=== PATIENT | male | born 1965 | race Caucasian/White ===

== ENCOUNTER 2018-12-15 00:54 | Emergency (ER) | payer OTHER ==
[~2018-12-15] VITALS: Ht 165.1 cm; Wt 95.3 kg
[2018-12-15 01:46] VITALS: BP 127/83
== END 2018-12-15 02:59 | disposition home or self-care (01) ==
LOC: ER 01:06
DX: H61.22 Impacted cerumen, left ear (principal); I10 Essential (primary) hypertension; B96.81 Helicobacter pylori [H. pylori] as the cause of diseases classified elsewhere

== ENCOUNTER 2019-05-31 22:43 | Emergency (ER) | payer OTHER ==
[~2019-05-31] VITALS: Ht 172.7 cm; Wt 90.7 kg
--- NOTE | 2019-05-31 22:47 | NUR ---
CALLED PT TO BE TRIAGED, NO ANSWER
--- NOTE | 2019-05-31 23:10 | NUR ---
PT PRESENTED TO THE ER WITH A C/O LLQ ABD PAIN /INGUINAL PAIN X 2 DAYS. PT GAVE A URINE SAMPLE AND AMBULATED TO ER 6 WITH A STEADY GAIT. PT STATED THAT HE IS GOING TO [place] TOMORROW AFTERNOON AND HE WAS WORRIED ABOUT THE ABD PAIN. PT STATED THAT IT HURTS WHEN HE SITS FOR LONG PERIODS OF TIME. PT STATED THAT HE WAS WORRIED ABOUT SITTING FOR [address]ANE WITH PAIN. PT DENIES CONSTIPATION AND DENIES URINATION ISSUES. PT IS ON THE MONITOR AND CONTINUOUS PULSE OX.
[2019-05-31 23:28] LABS: APPEARANCE,URINE Clear (CLEAR); BILIRUBIN,URINE Negative (NEGATIVE); BLOOD, URINE Negative Ery/uL (NEGATIVE); COLOR,URINE Yellow (YELLOW); KETONES,URINE Negative (NEGATIVE); LEUKOCYTE ESTERASE ,URINE Small (NEGATIVE); NITRITE, URINE Negative (NEGATIVE); PROTEIN,URINE Trace mg/dl (NEGATIVE); UGLUCOSE Negative (NEGATIVE); UROBILINOGEN,URINE 0.2 EU/dL (0.2)
[2019-05-31 23:30] LABS: BASOPHILS # (AUTO) 0.1 /CMM (0.0-0.2); BASOPHILS % (AUTO) 1.3 % (0.0-2.0); EOSINOPHILS % (AUTO) 1.6 % (0.0-6.0); HEMATOCRIT 40 % (39-51); HEMOGLOBIN 13.9 g/dL (13.5-17.5); LYMPHOCYTES # (AUTO) 2.8 /CMM (0.8-4.8); LYMPHOCYTES % (AUTO) 27.9 % (20.0-44.0); MEAN CORPUSCULAR HGB CONC 35 g/dl (31.0-36.0); MEAN CORPUSCULAR VOLUME 91 fL (80-96); MONOCYTES # (AUTO) 0.7 /CMM (0.1-1.30); MONOCYTES % (AUTO) 6.9 % (2.0-12.0); NEUTROPHILS # (AUTO) 6.3 /CMM (1.8-8.9); NEUTROPHILS % (AUTO) 62.3 % (43.0-81.0); PLATELET COUNT (AUTO) 190 /CMM (150-450); RED BLOOD CELL COUNT(AUTO) 4.37 MIL/uL (4.5-6.0); WHITE BLOOD COUNT (AUTO) 10.1 K/uL (4.3-11.0)
[2019-05-31] MEDS ORDERED: IV NS 0.9% 1,000 ML BAG IV ONE (23:30)
[2019-05-31] MEDS ORDERED: MORPHINE SULFATE INJ 2 MG/ML DISP.SYRIN IV ONE (23:30)
[2019-05-31] MEDS ORDERED: ONDANSETRON HCL/PF 4 MG/2 ML VIAL IVP ONE (23:30)
[2019-05-31] MEDS ORDERED: ONDANSETRON HCL/PF 4 MG/2 ML VIAL ONE (23:39)
[2019-05-31] MEDS ORDERED: MORPHINE SULFATE INJ 4 MG/ML DISP.SYRIN ONE (23:39)
[2019-05-31 23:43] LABS: CALCIUM, SERUM 9.4 mg/dL (8.5-10.1); CREATININE 1.1 mg/dL (0.6-1.3)
[2019-05-31] MEDS ORDERED: IBUPROFEN 600 MG TABLET PO ONE (23:45)
--- NOTE | 2019-05-31 23:45 | NUR ---
PT REFUSED MORPHINE AND ZOFRAN. AWARE. NEW ORDERS GIVEN. WILL MEDICATE PT UPON HIS RETURN FROM CT.
--- NOTE | 2019-05-31 23:45 | NUR ---
PT LEFT FOR CT VIA GURNEY.
[2019-05-31 23:48] LABS: ALBUMIN 4.1 g/dL (3.4-5.0); BILIRUBIN,DIRECT 0.1 mg/dL (0.0-0.2); BILIRUBIN,TOTAL 0.5 mg/dL (0.2-1.0); TOTAL PROTEIN, SERUM 7.9 g/dL (6.4-8.2)
[2019-05-31 23:54] LABS: BACTERIA,URINE None seen /HPF (None Seen); RBC,URINE 0-2 /HPF (0-2); SQUAMOUS EPITHELIAL CELL,UR Few /HPF (None Seen)
--- NOTE | 2019-05-31 23:56 | NUR ---
PT RETURNED FROM CT.
[2019-06-01] MEDS ORDERED: IBUPROFEN 600 MG TABLET PO ONE (00:30)
--- NOTE | 2019-06-01 00:36 | NUR ---
CALLING ELEAZAR RE: P'T'S CT.
--- NOTE | 2019-06-01 00:50 | NUR ---
PT STATED THAT HIS PAIN WAS BETTER. PT APPEARS TO BE RELAXING COMFORTABLY IN BED.
--- NOTE | 2019-06-01 01:22 | NUR ---
DR LACY SPOKE TO THE PT RE: IV ANTIBIOTICS. PT REFUSED IV ANTIBIOTICS. DR LACY OFFERED PO ANTIBIOTICS AND PT AGREED.
[2019-06-01] MEDS ORDERED: CIPROFLOXACIN HCL 500 MG TABLET ONE (01:25)
[2019-06-01] MEDS ORDERED: METRONIDAZOLE 500 MG TABLET ONE (01:26)
[2019-06-01] MEDS ORDERED: CIPROFLOXACIN HCL 500 MG TABLET PO ONE (01:30)
[2019-06-01] MEDS ORDERED: METRONIDAZOLE 500 MG TABLET PO ONE (01:30)
--- NOTE | 2019-06-01 01:40 | NUR ---
PT REC'D MEDICATION ORDERED.
--- NOTE | 2019-06-01 01:40 | NUR ---
IV removed. Catheter intact and site benign. Pressure and 4x4 applied to site. No bleeding noted. DPatient discharged to home in stable condition. Written and verbal after care instructions given. Patient verbalizes understanding of instruction AND RX. PT REC'D COPY OF THE LABS AND CT FINDINGS. PT AMBULATED OUT WITH A STEADY GAIT. VSS. NAD NOTED.
[2019-06-01 01:43] VITALS: BP 150/97
== END 2019-06-01 01:40 | disposition home or self-care (01) ==
LOC: ER 22:47
DX: K57.32 Diverticulitis of large intestine without perforation or abscess without bleeding (principal); N28.89 Other specified disorders of kidney and ureter; I10 Essential (primary) hypertension
CPT/HCPCS: 36415; 71045; 74176; 80048; 80076; 81001; 83690; 85025; 93005; 99284; J7030; 81000-TC; J2270; J2405

== ENCOUNTER 2020-11-11 15:10 | Emergency (ER) | payer OTHER ==
[~2020-11-11] VITALS: Ht 167.6 cm; Wt 92.5 kg
--- NOTE | 2020-11-11 15:36 | NUR ---
The patient was brought by his daughter to the emergency department for evaluation and treatment of persistent cough and congestion x10 days; the patient tested positive for Covid last week last -started on Z-Julio by his primary care physician. The patient finished his last dose yesterday. The patient still complained of on and off fever with cough and congestion.
--- NOTE | 2020-11-11 16:27 | NUR ---
Chest x-ray done-portable
--- NOTE | 2020-11-11 16:50 | NUR ---
Patient discharged to home in stable condition. Written and verbal after care instructions given. Patient verbalizes understanding of instruction.
[2020-11-11 16:51] VITALS: BP 115/72
== END 2020-11-11 16:51 | disposition home or self-care (01) ==
LOC: ER 15:12
DX: U07.1 COVID-19 (principal); R05 Cough; I10 Essential (primary) hypertension
CPT/HCPCS: 71045-TC

== ENCOUNTER 2020-11-16 14:24 | Inpatient (IN) | payer OTHER ==
[~2020-11-16] VITALS: Ht 167.6 cm; Wt 89.1 kg
--- NOTE | 2020-11-16 16:05 | NUR ---
SOB X 1 WEEK. WORST TODAY. TESTED POSITIVE 11/08/20. PATIENT A/OX4, PLACED ON 5LPM VIA NC WITH SPO2 OF 98%. NEEDS ATTENDED.
--- NOTE | 2020-11-16 16:53 | NUR ---
magalie haq at bedside for eval.
[2020-11-16] MEDS ORDERED: ACETAMINOPHEN ES 500 MG TABLET PO ONE (17:30)
[2020-11-16] MEDS ORDERED: DEXAMETHASONE SOD PHOSPHATE 10 MG/ML VIAL IV ONE (17:30)
--- NOTE | 2020-11-16 17:47 | NUR ---
BLOOD DRAWN AND SENT TO LAB.
--- NOTE | 2020-11-16 17:48 | NUR ---
COVID SWAB SENT TO LAB.
[2020-11-16 17:49] LABS: BASOPHILS # (AUTO) 0.1 /CMM (0.0-0.2); BASOPHILS % (AUTO) 1.3 % (0.0-2.0); EOSINOPHILS % (AUTO) 0.3 % (0.0-6.0); HEMATOCRIT 41 % (39-51); HEMOGLOBIN 13.7 g/dL (13.5-17.5); LYMPHOCYTES # (AUTO) 1.2 /CMM (0.8-4.8); LYMPHOCYTES % (AUTO) 13.5 % (20.0-44.0); MEAN CORPUSCULAR HGB CONC 34 g/dl (31.0-36.0); MEAN CORPUSCULAR VOLUME 91 fL (80-96); MONOCYTES # (AUTO) 0.3 /CMM (0.1-1.30); MONOCYTES % (AUTO) 3.4 % (2.0-12.0); NEUTROPHILS # (AUTO) 7.2 /CMM (1.8-8.9); NEUTROPHILS % (AUTO) 81.5 % (43.0-81.0); PLATELET COUNT (AUTO) 239 /CMM (150-450); RED BLOOD CELL COUNT(AUTO) 4.49 MIL/uL (4.5-6.0); WHITE BLOOD COUNT (AUTO) 8.9 K/uL (4.3-11.0)
[2020-11-16] MEDS ORDERED: ACETAMINOPHEN ES 500 MG TABLET ONE (17:50)
[2020-11-16] MEDS ORDERED: DEXAMETHASONE SOD PHOSPHATE 10 MG/ML VIAL ONE (17:50)
[2020-11-16] MEDS ORDERED: CEFTRIAXONE 1GM BAG (ER ONLY) 1 GM/50 ML PIGGYBACK IV ONE (18:00)
[2020-11-16] MEDS ORDERED: AZITHROMYCIN 500 MG in IV D5W 250 ML IV ONE (18:00)
[2020-11-16 18:01] LABS: CALCIUM, SERUM 9.1 mg/dL (8.5-10.1); CHLORIDE 93 mmol/L (98-107); CREATININE 1.2 mg/dL (0.6-1.3); GLUCOSE 128 mg/dL (74-106); POTASSIUM 3.9 mmol/L (3.5-5.1); SODIUM SERUM 131 mmol/L (136-145); UREA NITROGEN, BLOOD 11 mg/dL (7-18)
[2020-11-16] MEDS ORDERED: CEFTRIAXONE 1GM BAG (ER ONLY) 50 ML IV ONE (18:15)
[2020-11-16 18:28] LABS: CARBON DIOXIDE 26 mmol/L (21-32)
[2020-11-16 18:30] LABS: ALANINE AMINOTRANSFERASE 144 U/L (12-78); ALKALINE PHOSPHATASE 133 U/L (46-116); ASPARTATE AMINOTRANSFERASE 142 U/L (15-37); BILIRUBIN,TOTAL 0.8 mg/dL (0.2-1.0); D-DIMER 0.62 mg/L(FEU (0.17-0.50)
[2020-11-16] MEDS ORDERED: IV NS 0.9% 500 ML BAG IV ONE (18:30)
[2020-11-16 18:31] LABS: B-TYPE NATRIURETIC PEPTIDE 88 PG/ML (0-125); TOTAL PROTEIN, SERUM 8.3 g/dL (6.4-8.2)
[2020-11-16 18:43] LABS: CREATINE KINASE, TOTAL 363 U/L (39-308); FERRITIN 5005 ng/mL (8-388)
[2020-11-16 18:50] LABS: C-REACTIVE PROTEIN 22.3 mg/dL (0.0-0.9)
[2020-11-16] MEDS ORDERED: ASCO500T23 PO (18:50)
[2020-11-16] MEDS ORDERED: ACET-1262 PO (18:50)
[2020-11-16] MEDS ORDERED: ERGO500014 PO (18:50)
[2020-11-16] MEDS ORDERED: ASPI-1420 PO (18:50)
[2020-11-16] MEDS ORDERED: TAMS-12 PO (18:50)
[2020-11-16] MEDS ORDERED: ENAL1TAB10 PO (18:50)
--- NOTE | 2020-11-16 18:58 | NUR ---
PATIENT PROVIDED FOOD AND WATER.
--- NOTE | 2020-11-16 19:15 | NUR ---
ASSUMED CARE. RECEIVED REPORT FROM AM SHIFT ANJEL PRESTON. PT RESTING QUIETLY, NO ACUTE DISTRESS NOTED, RESP EVEN AND UNLABORED. PT ON CARDIAC MONITORING, CONTINUOUS POX. 02@5L/NC. NO PAIN OR DISCOMFORT NOTED AT THIS TIME. PT AAOX4. SKIN WARM, NONDIAPHORETIC. CALL LIGHT WITHIN REACH. WILL CONTINUE TO MONITOR PT CLOSELY.
[2020-11-16] MEDS ORDERED: IV NS 0.9% 1,000 ML IV PRN (19:30)
[2020-11-16] MEDS ORDERED: ALBUTEROL FS 2.5 MG/3 ML VIAL.NEB NEB PRN (19:30)
[2020-11-16] MEDS ORDERED: ONDANSETRON HCL/PF 4 MG/2 ML VIAL IVP PRN (19:30)
[2020-11-16] MEDS ORDERED: ONDANSETRON 4 MG TAB.RAPDIS SL PRN (19:30)
[2020-11-16] MEDS ORDERED: ACETAMINOPHEN 325 MG TABLET PO PRN (19:30)
[2020-11-16] MEDS: APIXABAN 5 MG TABLET PO SCH (20:35)
[2020-11-16 20:38] LABS: BILIRUBIN,DIRECT 0.3 mg/dL (0.0-0.2)
[2020-11-16] MEDS: DOXYCYCLINE HYCLATE (100 MG) 100 MG TABLET PO SCH (21:45)
[2020-11-16] MEDS ORDERED: DOXYCYCLINE HYCLATE (100 MG) 100 MG TABLET ONE (21:48)
--- NOTE | 2020-11-17 01:53 | NUR ---
PT ASLEEP, NO ACUTE DISTRESS NOTED, RESP EVEN AND UNLABORED. CALL LIGHT WITHIN REACH. WILL CONTINUE TO MONITOR PT CLOSELY.
--- NOTE | 2020-11-17 05:18 | NUR ---
PT AAOX4, NO ACUTE DISTRESS NOTED, RESP EVEN AND UNLABORED. PT REMAINS ON O2@5L/NC. PT DENIES PAIN OR DISCOMFORT AT THIS TIME. NEEDS MET AND ATTENDED THROUGHOUT THE NIGHT. CALL LIGHT WITHIN REACH. WILL CONTINUE TO MONITOR PT CLOSELY.
[2020-11-17 06:11] LABS: BASOPHILS % (AUTO) 0.2 % (0.0-2.0); HEMATOCRIT 39 % (39-51); LYMPHOCYTES # (AUTO) 0.5 /CMM (0.8-4.8); LYMPHOCYTES % (AUTO) 13.5 % (20.0-44.0); MEAN CORPUSCULAR HGB CONC 34 g/dl (31.0-36.0); MEAN CORPUSCULAR VOLUME 91 fL (80-96); MONOCYTES # (AUTO) 0.1 /CMM (0.1-1.30); MONOCYTES % (AUTO) 3.5 % (2.0-12.0); NEUTROPHILS # (AUTO) 3.1 /CMM (1.8-8.9); NEUTROPHILS % (AUTO) 82.8 % (43.0-81.0); PLATELET COUNT (AUTO) 176 /CMM (150-450); RED BLOOD CELL COUNT(AUTO) 4.24 MIL/uL (4.5-6.0); WHITE BLOOD COUNT (AUTO) 3.8 K/uL (4.3-11.0)
[2020-11-17 06:32] LABS: ALBUMIN 2.7 g/dL (3.4-5.0); BILIRUBIN,TOTAL 0.5 mg/dL (0.2-1.0); CALCIUM, SERUM 9.1 mg/dL (8.5-10.1); CREATININE 1.1 mg/dL (0.6-1.3); POTASSIUM 3.9 mmol/L (3.5-5.1); TOTAL PROTEIN, SERUM 7.6 g/dL (6.4-8.2)
--- NOTE | 2020-11-17 08:00 | NUR ---
PATIENT ON O2 AT 5LPM VIA NC, WITH SPO2 OF 91-92%. PATIENT DESATS ON EXERTION. INSTRUCTED PATIENT TO REST IN BED.
[2020-11-17] MEDS ORDERED: DEXAMETHASONE SOD PHOSPHATE 4 MG/ML VIAL ONE (09:17)
[2020-11-17] MEDS ORDERED: DOXYCYCLINE HYCLATE (100 MG) 100 MG TABLET ONE ×2 (09:17→20:17)
[2020-11-17] MEDS: DEXAMETHASONE SOD PHOSPHATE 10 MG/ML VIAL IV SCH (09:41)
[2020-11-17] MEDS: CEFEPIME 1 GM in IV D5W 50 ML IV SCH ×2 (09:41→20:57)
[2020-11-17] MEDS: APIXABAN 5 MG TABLET PO SCH ×2 (09:42→17:25)
[2020-11-17] MEDS: DOXYCYCLINE HYCLATE (100 MG) 100 MG TABLET PO SCH ×2 (09:42→20:58)
--- NOTE | 2020-11-17 10:00 | NUR ---
PATIENT SEEN AND EVALUATED BY DR. TODD.
--- NOTE | 2020-11-17 13:36 | NUR ---
PATIENT'S NEEDS ATTENDED, CHANGED GOWN AND BLANKET.
--- NOTE | 2020-11-17 14:01 | NUR ---
PATIENT ASSISTED ON BEDSIDE COMMODE.
--- NOTE | 2020-11-17 14:53 | NUR ---
PATIENT'S O2 INCREASED TO 6LPM VIA NC WITH SPO2 OF 95%, NEEDS ATTENDED. PATIENT GIVEN INFORMATION AND HANDOUT REGARDING REMDESIVIR, SPOKE TO PATIENT'S DAUGHTER FOR TRANSLATION TO PATIENT.
--- NOTE | 2020-11-17 15:00 | NUR ---
PATIENT AND FAMILY STATED THEY WANT TO WAIT A LITTLE LONGER BEFORE TAKING THE REMDESIVIR, THEY ARE CONCERN ABOUT THE SIDE EFFECTS. INFORMED PHARMACY AND MD PATIENT IS REFUSING REMDESIVIR AT THIS TIME. EXPLAINED RISKS AND BENEFITS STILLR EFUSED.
[2020-11-18 05:30] LABS: ALBUMIN 2.6 g/dL (3.4-5.0); BILIRUBIN,DIRECT 0.2 mg/dL (0.0-0.2); BILIRUBIN,TOTAL 0.4 mg/dL (0.2-1.0); TOTAL PROTEIN, SERUM 7.2 g/dL (6.4-8.2)
--- NOTE | 2020-11-18 08:27 | NUR ---
report given to deuce at [facility]. pt will go to 103
[2020-11-18 09:00] VITALS: BP 116/76
--- NOTE | 2020-11-18 09:06 | NUR ---
pt transferred to room 103
--- NOTE | 2020-11-18 09:10 | NUR ---
ADMITTED PT FROM ER WITH DX OF COVID PNA.PT IS ALERT AND ORIENTED X3. DANISH SPEAKING.ON O2 AT 5 L/ MIN VIA NC. OS SAT 96%.SKIN INTACT.AMBULATES AD GENEVIEVE STEADY GAIT WITH O2 . ROOM ORIENTATION AND USE OF CALL LIGHT PROVIDED. SPOKE TO PT'S DAUGHTER,KIMBERLY WHO STATED THAT HER DAD IS STILL UNDECIDED TO RECEIVE REMDESIVIR IV AT THIS TIME AND TO GIVE HER TIME TO CONVINCE HER DAD. CALL LIGHT PLACED WITHIN REACH.
[2020-11-18] MEDS: DEXAMETHASONE SOD PHOSPHATE 10 MG/ML VIAL IV SCH (10:32)
[2020-11-18] MEDS: APIXABAN 5 MG TABLET PO SCH ×2 (10:33→16:33)
[2020-11-18] MEDS: DOXYCYCLINE HYCLATE (100 MG) 100 MG TABLET PO SCH ×2 (10:33→20:35)
--- NOTE | 2020-11-18 11:00 | NUR ---
PT REFUSED TO HAVE REMDESIVIR IV INSPITE OF EXPLAINING THE RISKS AND BENEFITS WITH HIS DAUGHTER,KIMBERLY CONVINCING HIM. KIMBERLY STATED VIA PHONE THAT SHE WILL TRY TO CONVINCE HER DAD AGAIN JUST GIVE HER TIME FOR AN HOUR.PHARMACIST AWARE.
[2020-11-18] MEDS: CEFEPIME 1 GM in IV D5W 50 ML IV SCH ×2 (11:17→20:35)
[2020-11-18 12:00] VITALS: BP 144/84
--- NOTE | 2020-11-18 13:00 | NUR ---
PT'S DAUGHTER,KIMBERLY CALLED AND STATED THAT PT WANTS TO RECEIVE REMDESIVIR IV THERAPY NOW BUT NOT THE CONVALESCENT PLASMA. PT/FAMILY REFUSED CONVALESCENT PLASMA.
[2020-11-18 13:47] LABS: CALCIUM, SERUM 9.2 mg/dL (8.5-10.1); CREATININE 0.9 mg/dL (0.6-1.3); POTASSIUM 3.9 mmol/L (3.5-5.1)
[2020-11-18] MEDS ORDERED: REMDESIVIR (CHARGED) 200 MG, *LOADING DOSE 1 EA in IV NS 0.9% 210 ML IV ONE (15:00)
[2020-11-18 16:00] VITALS: BP 132/84
--- NOTE | 2020-11-18 19:09 | NUR ---
RN NOTES PT IS ALERT AND ORIENTED X3. SWEDISH SPEAKING.ON O2 AT 5 L/ MIN VIA NC. OS SAT 96%.SKIN INTACT.AMBULATES AD GENEVIEVE STEADY GAIT WITH O2 . NO SOB NO PAIN OR DISCOMFORT VISIBLE OR REPORTED AT THIS TIME.CALL LIGHT WITHIN REACH. BED LOCKED IN POSITION. WILL ENDORSE TO ON COMING NURSE.
--- NOTE | 2020-11-18 19:45 | NUR ---
RN NOTES RECEIVED PT IN BED, ALERT AND ORIENTED X 4, VERBALLY RESPONDING. BREATHING EVEN AND UNLABORED ON O2 VIA NC AT 5L SATING AT 95 % DENIES SOB DENIES PAIN. ON TELE MONITORING SR HR 83. R AC IV FLUSHED, PATENT AND INTACT. IV SITE NORMAL, NO REDNESS NOTED. ISOLATION PRECAUTION OBSERVED. ALL SAFETY MEASURES IMPLEMENTED PER PROTOCOL. CALL LIGHT WITHIN REACH. BED LOCKED IN LOWEST POSITION. SIDE RAILS UP X 2.
[2020-11-18 20:00] VITALS: BP 138/81
[2020-11-19] VITALS: BP 125/75
[2020-11-19 04:00] VITALS: BP 120/71
--- NOTE | 2020-11-19 06:42 | NUR ---
RN NOTES PT SLEEPING, EASILY AROUSABLE BY VERBAL STIMULI. CONTINUR ON O2 VIA NC AT 5L,TOLERATING WELL. DENIES SOB. NO DISTRESS NOTED. TELE READING SB HR 58. PT ABLE TO MAKE NEEDS KNOWN, NEEDS ATTENDED. IV ON RAC PATENT AND INTAT. NO SIGNS OF INFECTION. STRICT ISOLATION PRECAUTION MAINTAINED. ALL SAFETY MEASURES IMPLEMENTED PER PROTOCOL. WILL ENDORSE TO NEXT SHIFT NURSE FOR NELIDA.
--- NOTE | 2020-11-19 07:30 | NUR ---
SUB ASSEMBLY TEAM WORKER NOTES PT IN BED, AWAKE, ALERT AND ORIENTED, NO COMPLAINT OF PAIN, RESPIRATIONS NORMAL, NO SHORTNESS OF BREATH, CALL LIGHT WITHIN REACH, NEEDS ATTENDED.
--- NOTE | 2020-11-19 07:33 | NUR ---
RADIO NEWS WRITER NOTES PT IN BED, AWAKE, ALERT AND ORIENTED, NO COMPLAINT OF PAIN AT THIS TIME, RESPIRATION RATE NORMAL, ON HIGN FLOW O2 AND NRM, CALL LIGHT WITHIN REACH, NEEDS ATTENDED. Addendum: 11/19/20 at 1026 by COLEMAN TREVINO RN PLEASE DISREGARD ABOVE NOTE, MEANT FOR ANOTHER PATIENT.
[2020-11-19 07:47] LABS: HEMATOCRIT 36 % (39-51); HEMOGLOBIN 12.3 g/dL (13.5-17.5); LYMPHOCYTES # (AUTO) 0.6 /CMM (0.8-4.8); MEAN CORPUSCULAR HGB CONC 34 g/dl (31.0-36.0); MEAN CORPUSCULAR VOLUME 91 fL (80-96); MONOCYTES # (AUTO) 0.5 /CMM (0.1-1.30); MONOCYTES % (AUTO) 5.2 % (2.0-12.0); NEUTROPHILS # (AUTO) 9.4 /CMM (1.8-8.9); NEUTROPHILS % (AUTO) 88.8 % (43.0-81.0); PLATELET COUNT (AUTO) 248 /CMM (150-450); RED BLOOD CELL COUNT(AUTO) 3.96 MIL/uL (4.5-6.0); WHITE BLOOD COUNT (AUTO) 10.5 K/uL (4.3-11.0)
[2020-11-19 08:00] VITALS: BP 137/85
[2020-11-19 08:15] LABS: ALBUMIN 2.6 g/dL (3.4-5.0); BILIRUBIN,DIRECT 0.2 mg/dL (0.0-0.2); BILIRUBIN,TOTAL 0.4 mg/dL (0.2-1.0); CALCIUM, SERUM 8.7 mg/dL (8.5-10.1); POTASSIUM 4.1 mmol/L (3.5-5.1); TOTAL PROTEIN, SERUM 6.7 g/dL (6.4-8.2)
[2020-11-19 08:52] LABS: D-DIMER 0.75 mg/L(FEU (0.17-0.50)
[2020-11-19] MEDS: DEXAMETHASONE SOD PHOSPHATE 10 MG/ML VIAL IV SCH (09:10)
[2020-11-19] MEDS: CEFEPIME 1 GM in IV D5W 50 ML IV SCH ×2 (09:10→21:20)
[2020-11-19] MEDS: DOXYCYCLINE HYCLATE (100 MG) 100 MG TABLET PO SCH ×2 (09:10→21:20)
[2020-11-19] MEDS: APIXABAN 5 MG TABLET PO SCH ×2 (09:11→16:40)
--- NOTE | 2020-11-19 11:39 | NUR ---
ARCHITECT MANAGER NOTES PT IN BED, NO COMPLAINT AT THIS TIME, NOT IN DISTRESS, ABLE TO AMBULATE TO THE BATHROOM WITH STEADY GAIT, NEEDS ATTENDED, CALL LIGHT WITHIN REACH.
[2020-11-19 12:00] VITALS: BP 148/82
[2020-11-19 12:06] LABS: C-REACTIVE PROTEIN 4.5 mg/dL (0.0-0.9)
[2020-11-19] MEDS: REMDESIVIR (CHARGED) 100 MG in IV NS 0.9% 230 ML IV SCH (14:40)
[2020-11-19 16:00] VITALS: BP 156/90
--- NOTE | 2020-11-19 18:01 | NUR ---
TEST PREPARER NOTES PT IN BED, AWAKE, ALERT AND ORIENTED, DENIES PAIN, NO SOB, ON 5L OF O2 VIA N/C, ABLE TO AMBULATE TO THE BATHROOM WITH STEADY GAIT, PM MEDS GIVEN ORDERED.
--- NOTE | 2020-11-19 19:46 | NUR ---
RN NOTES PATIENT AWAKE AND ALERT. NO SOB, ON 5L OF O2 VIA NASAL CANNULA. DENIES ANY PAIN OR DISCOMFORT. WITH RIGHT AC #20 INTACT AND PATENT. ALL NEEDS ANTICIPATED. CALL LIGHT WITHIN REACH. WILL CONTINUE TO MONITOR.
[2020-11-19 20:00] VITALS: BP 135/85
[2020-11-20] VITALS: BP 150/87
[2020-11-20 04:00] VITALS: BP 140/84
--- NOTE | 2020-11-20 06:41 | NUR ---
RN NOTES PATIENT RESTING IN BED, A/O X4. NO SOB, ON 5L OF O2 VIA NASAL CANNULA O2 SAT 96%. DENIES ANY PAIN OR DISCOMFORT. WITH RIGHT AC #20 INTACT AND PATENT. ALL NEEDS ANTICIPATED. CALL LIGHT WITHIN REACH. SAFETY PRECAUTIONS IMPLEMENTED. WILL ENDORSE TO ONCOMING SHIFT.
[2020-11-20 07:08] LABS: BASOPHILS % (AUTO) 0.1 % (0.0-2.0); EOSINOPHILS % (AUTO) 0.1 % (0.0-6.0); HEMATOCRIT 34 % (39-51); HEMOGLOBIN 11.7 g/dL (13.5-17.5); LYMPHOCYTES # (AUTO) 0.9 /CMM (0.8-4.8); LYMPHOCYTES % (AUTO) 8.7 % (20.0-44.0); MEAN CORPUSCULAR HGB CONC 35 g/dl (31.0-36.0); MEAN CORPUSCULAR VOLUME 90 fL (80-96); MONOCYTES # (AUTO) 0.5 /CMM (0.1-1.30); MONOCYTES % (AUTO) 5.3 % (2.0-12.0); NEUTROPHILS # (AUTO) 8.7 /CMM (1.8-8.9); NEUTROPHILS % (AUTO) 85.8 % (43.0-81.0); PLATELET COUNT (AUTO) 243 /CMM (150-450); RED BLOOD CELL COUNT(AUTO) 3.78 MIL/uL (4.5-6.0); WHITE BLOOD COUNT (AUTO) 10.2 K/uL (4.3-11.0)
--- NOTE | 2020-11-20 07:20 | NUR ---
GLASS PRODUCTS INSPECTOR OPENING NOTES PATIENT IS IN BED, AWAKE AND VERBALLY RESPONSIVE. ALERT AND ORIENTED X4, ABLE TO MAKE NEEDS KNOWN. BREATHING EVEN AND UNLABORED, ON 5L OXYGEN VIA NASAL CANNULA, NO RESPIRATORY DISTRESS NOTED. ON TELE MONITORING, READING OF SR, HR IN THE LOW- TO MID-60'S. IV LINE ON RAC #20 INTACT AND PATENT. SAFETY MEASURES IN PLACE: BED ON LOWEST POSITION, SIDE RAILS UP X2. CALL LIGHT WITHIN REACH. WILL CONTINUE TO MONITOR.
[2020-11-20 07:33] LABS: ALBUMIN 2.4 g/dL (3.4-5.0); BILIRUBIN,DIRECT 0.2 mg/dL (0.0-0.2); BILIRUBIN,TOTAL 0.4 mg/dL (0.2-1.0); CALCIUM, SERUM 8.5 mg/dL (8.5-10.1); CREATININE 0.9 mg/dL (0.6-1.3); POTASSIUM 4.3 mmol/L (3.5-5.1); TOTAL PROTEIN, SERUM 6.2 g/dL (6.4-8.2)
[2020-11-20 08:00] VITALS: BP 129/79
[2020-11-20] MEDS: DOXYCYCLINE HYCLATE (100 MG) 100 MG TABLET PO SCH ×2 (08:05→20:24)
[2020-11-20] MEDS: DEXAMETHASONE SOD PHOSPHATE 10 MG/ML VIAL IV SCH (08:05)
[2020-11-20] MEDS: CEFEPIME 1 GM in IV D5W 50 ML IV SCH ×2 (08:07→20:24)
[2020-11-20] MEDS: APIXABAN 5 MG TABLET PO SCH (08:07)
[2020-11-20 12:00] VITALS: BP_SYST 143; BP_SYST 148; BP_DIAS 87
[2020-11-20] MEDS: REMDESIVIR (CHARGED) 100 MG in IV NS 0.9% 230 ML IV SCH (14:40)
[2020-11-20 16:00] VITALS: BP 139/88
--- NOTE | 2020-11-20 16:27 | NUR ---
RN NOTES REMDESIVIR IV DOSE GIVEN TODAY. PATIENT NO COMPLAINT OF SOB NOR RESPIRATORY DISTRESS. ABLE TO AMBULATE TO RESTROOM.
[2020-11-20] MEDS ORDERED: APIXABAN 5 MG TABLET PO SCH (17:00)
--- NOTE | 2020-11-20 19:00 | NUR ---
SECOND RIDE FARE COLLECTOR CLOSING NOTES PATIENT IS RESTING IN BED, AWAKE AND VERBALLY RESPONSIVE. ALERT AND ORIENTED X4, ABLE TO MAKE NEEDS KNOWN. BREATHING EVEN AND UNLABORED, CONTINUES ON 5L OXYGEN VIA NC. ON TELE MONITORING, READING OF SR, HR IN THE 60'S, NO CARDIAC DISTRESS NOTED. IV LINE ON RAC #20 INTACT AND PATENT. DUE MEDS GIVEN TODAY. PATIENT ABLE TO EAT AND AMBULATE TO BATHROOM W/ NO ADVERSE CHANGES. SAFETY MEASURES MAINTAINED: BED ON LOWEST POSITION, SIDE RAILS UP X2. CALL LIGHT WITHIN REACH. WILL ENDORSE TO INTERNAL REVIEW AND AUDIT COMPLIANCE RN FOR NELIDA.
--- NOTE | 2020-11-20 19:30 | NUR ---
CASINO FLOOR WALKER NOTES PATIENT IN BED, AWAKE, ALERT AND ORIENTED X 4. BREATHING EVEN AND UNLABORED ON 5L NC. SHOWS NO SIGNS OF ACUTE RESPIRATORY DISTRESS. NO ACUTE PAIN. TELE SR. RAC 20G ITS CLEAN DRY AND INTACT. FLUSHING WELL. SHOWS NO SIGNS OF INFILTRATION, NO REDNESS. SAFETY PRECAUTIONS IN PLACE. BED IN LOWEST POSITION, LOCKED, AND CALL LIGHT KEPT WITHIN REACH. WILL CONTINUE TO MONITOR.
[2020-11-20 20:00] VITALS: BP 146/89
[2020-11-20] MEDS: ENOXAPARIN SODIUM 40 MG/0.4 ML DISP.SYRIN SQ SCH (20:24)
[2020-11-21] VITALS: BP 149/82
[2020-11-21 04:00] VITALS: BP 136/87
--- NOTE | 2020-11-21 04:53 | NUR ---
INTERNATIONAL ACCOUNTANT NOTES PATIENT REQUESTED TYLENOL FOR HEADACHE. CHANGED MIND, WASTED MEDICATION IN PROPER BIN.
[2020-11-21 06:17] LABS: ALBUMIN 2.6 g/dL (3.4-5.0); BASOPHILS % (AUTO) 0.1 % (0.0-2.0); BILIRUBIN,DIRECT 0.2 mg/dL (0.0-0.2); BILIRUBIN,TOTAL 0.5 mg/dL (0.2-1.0); CALCIUM, SERUM 8.7 mg/dL (8.5-10.1); EOSINOPHILS % (AUTO) 0.2 % (0.0-6.0); HEMATOCRIT 36 % (39-51); LYMPHOCYTES # (AUTO) 1.2 /CMM (0.8-4.8); LYMPHOCYTES % (AUTO) 12.2 % (20.0-44.0); MEAN CORPUSCULAR HGB CONC 34 g/dl (31.0-36.0); MEAN CORPUSCULAR VOLUME 91 fL (80-96); MONOCYTES # (AUTO) 0.6 /CMM (0.1-1.30); MONOCYTES % (AUTO) 5.6 % (2.0-12.0); NEUTROPHILS # (AUTO) 8.2 /CMM (1.8-8.9); NEUTROPHILS % (AUTO) 81.9 % (43.0-81.0); PLATELET COUNT (AUTO) 267 /CMM (150-450); POTASSIUM 4.8 mmol/L (3.5-5.1); RED BLOOD CELL COUNT(AUTO) 3.95 MIL/uL (4.5-6.0); TOTAL PROTEIN, SERUM 6.3 g/dL (6.4-8.2)
--- NOTE | 2020-11-21 07:09 | NUR ---
CHANNEL MARKETING PROGRAM MANAGER NOTES PATIENT IN BED, ASLEEP, ALERT AND ORIENTED X 4. BREATHING EVEN AND UNLABORED ON 5L NC. SHOWS NO SIGNS OF ACUTE RESPIRATORY DISTRESS. NO ACUTE PAIN. TELE SR. RAC 20G ITS CLEAN DRY AND INTACT. FLUSHING WELL. SHOWS NO SIGNS OF INFILTRATION, NO REDNESS. ALL DUE MEDICATIONS GIVEN. ALL NEEDS ATTENDED TO. SAFETY PRECAUTIONS IN PLACE. BED IN LOWEST POSITION, LOCKED, AND CALL LIGHT KEPT WITHIN REACH. WILL CONTINUE TO MONITOR.
--- NOTE | 2020-11-21 07:50 | NUR ---
REEL CUTTER OPEN NOTES PATIENT IS A/O X 4 WITH NO SIGNS OF DISTRESS ON 5L OF NASAL CANNULA 96-99%. R AC IV SL. NO COMPLAIN OF PAIN AT THIS TIME. ON TELE MONITOR SR. SAFETY MEASURES ARE APPLIED, BED IS IN LOW POSITION SIDE RAILS UP X 2. CALL LIGHT WITHIN REACH. WILL CONTINUE TO MONITOR.
[2020-11-21 08:00] VITALS: BP 128/82
--- NOTE | 2020-11-21 09:00 | NUR ---
REPORT WAS GIVEN TO BENNETT HOBBS FOR CONTINUITY OF CARE.
--- NOTE | 2020-11-21 09:00 | NUR ---
TELE/RN NOTE Received report from ANJEL Nice. Patient awake in bed, A&O x 4. No complaints of pain/discomfort at this time. Breathing even and non-labored on 2 L via NC, saturating at 93%. No cardiac distress noted. On tele monitor, reading SR 83. Bed locked to its lowest position, side rails x 2 up, call light in hand. Will continue with current medical management.
[2020-11-21] MEDS: CEFEPIME 1 GM in IV D5W 50 ML IV SCH ×2 (09:11→21:24)
[2020-11-21] MEDS: ENOXAPARIN SODIUM 40 MG/0.4 ML DISP.SYRIN SQ SCH ×2 (09:11→21:28)
[2020-11-21] MEDS: DOXYCYCLINE HYCLATE (100 MG) 100 MG TABLET PO SCH ×2 (09:11→21:28)
[2020-11-21] MEDS: DEXAMETHASONE SOD PHOSPHATE 10 MG/ML VIAL IV SCH (09:12)
--- NOTE | 2020-11-21 11:00 | NUR ---
TELE/RN NOTE Saleem Quiroz at bedside, weaned patient off of oxygen, currently saturating at 95-97%. No respiratory distress noted. Patient appears well and comfortable.
[2020-11-21 12:00] VITALS: BP 147/80
[2020-11-21] MEDS: REMDESIVIR (CHARGED) 100 MG in IV NS 0.9% 230 ML IV SCH (14:53)
[2020-11-21 16:00] VITALS: BP 138/66
--- NOTE | 2020-11-21 18:26 | NUR ---
TELE/RN CLOSING NOTE Patient resting in bed, A&O x 4. All needs met and attended to. No complaints of pain/discomfort throughout shift. Breathing even and non-labored on RA, saturating at 95-96%. No cardiac distress noted. On tele monitor, reading SR 65. Fall precautions maintained. Will endorse to night assistant nurse.
[2020-11-21 20:00] VITALS: BP 131/77
[2020-11-22] VITALS: BP 151/81
[2020-11-22 04:00] VITALS: BP 129/83
[2020-11-22 06:13] LABS: BASOPHILS % (AUTO) 0.3 % (0.0-2.0); EOSINOPHILS % (AUTO) 0.1 % (0.0-6.0); HEMATOCRIT 38 % (39-51); HEMOGLOBIN 12.6 g/dL (13.5-17.5); LYMPHOCYTES # (AUTO) 1.3 /CMM (0.8-4.8); LYMPHOCYTES % (AUTO) 12.4 % (20.0-44.0); MEAN CORPUSCULAR HGB CONC 33 g/dl (31.0-36.0); MEAN CORPUSCULAR VOLUME 92 fL (80-96); MONOCYTES # (AUTO) 0.7 /CMM (0.1-1.30); MONOCYTES % (AUTO) 6.6 % (2.0-12.0); NEUTROPHILS # (AUTO) 8.6 /CMM (1.8-8.9); NEUTROPHILS % (AUTO) 80.6 % (43.0-81.0); PLATELET COUNT (AUTO) 250 /CMM (150-450); RED BLOOD CELL COUNT(AUTO) 4.13 MIL/uL (4.5-6.0); WHITE BLOOD COUNT (AUTO) 10.7 K/uL (4.3-11.0)
[2020-11-22 06:29] LABS: ALBUMIN 2.5 g/dL (3.4-5.0); BILIRUBIN,DIRECT 0.1 mg/dL (0.0-0.2); BILIRUBIN,TOTAL 0.5 mg/dL (0.2-1.0); CALCIUM, SERUM 8.5 mg/dL (8.5-10.1); POTASSIUM 4.6 mmol/L (3.5-5.1); TOTAL PROTEIN, SERUM 6.3 g/dL (6.4-8.2)
--- NOTE | 2020-11-22 07:30 | NUR ---
WATERWAY TRAFFIC CHECKER NOTES PT IN BED, AWAKE, ALERT AND ORIENTED, ON ROOM AIR, NO COMPLAINT OF SOB, NO COMPLAINT OF PAIN, RESPIRATIONS NORMAL, CALL LIGHT WITHIN REACH, NEEDS ATTENDED.
[2020-11-22 08:00] VITALS: BP 124/82
[2020-11-22] MEDS: DEXAMETHASONE SOD PHOSPHATE 10 MG/ML VIAL IV SCH (08:31)
[2020-11-22] MEDS: DOXYCYCLINE HYCLATE (100 MG) 100 MG TABLET PO SCH (08:31)
[2020-11-22] MEDS: CEFEPIME 1 GM in IV D5W 50 ML IV SCH (08:31)
[2020-11-22] MEDS: ENOXAPARIN SODIUM 40 MG/0.4 ML DISP.SYRIN SQ SCH (08:39)
[2020-11-22 12:00] VITALS: BP 130/83
[2020-11-22] MEDS: REMDESIVIR (CHARGED) 100 MG in IV NS 0.9% 230 ML IV SCH (13:40)
--- NOTE | 2020-11-22 15:45 | NUR ---
ENVIRONMENTAL SERVICES COORDINATOR NOTES PT AWAKE, ALERT AND ORIENTED, WALING IN HIS ROOM WITH STEADY GAIT, NO COMPLAINT OF PAIN, NO SOB, TOLERATES ROOM AIR WELL, DISCHARGE ORDER GIVEN BY DR. THAKUR, DISCHARGE AND MEDICATION INSTRUCTIONS PROVIDED TO PT, VERBALIZED UNDERSTANDING, NEW PRESCRIPTION GIVEN TO PT, BELONGINGS ACCOUNTED FOR, ASSISTED TO HOSPITAL LOBBY, PICKED UP BY HIS DAUGHTER, LEFT VIA PRIVATE CAR IN STABLE CONDITION.
== END 2020-11-22 15:40 | disposition home or self-care (01) | DRG 720 ==
LOC: ER 14:28 → TRANSITION 18:36 → TELE1 11-18 08:36
PROVIDERS: ADMIT Nurse Practitioner Acute Care; ATTEND Nurse Practitioner Acute Care
PROC: XW033E5 Introduction of Remdesivir Anti-infective into Peripheral Vein, Percutaneous Approach, New Technology Group 5 (ICD-10-PCS; principal; 2020-11-17)
DX: A41.89 Other specified sepsis (principal); U07.1 COVID-19; J12.89 Other viral pneumonia; J15.9 Unspecified bacterial pneumonia; E87.1 Hypo-osmolality and hyponatremia; E44.0 Moderate protein-calorie malnutrition; J96.01 Acute respiratory failure with hypoxia; E11.9 Type 2 diabetes mellitus without complications; E78.5 Hyperlipidemia, unspecified; I10 Essential (primary) hypertension; Z79.82 Long term (current) use of aspirin; Z79.899 Other long term (current) drug therapy; R74.01 Elevation of levels of liver transaminase levels; E86.1 Hypovolemia; N40.0 Benign prostatic hyperplasia without lower urinary tract symptoms; E87.2 Acidosis; E66.9 Obesity, unspecified; Z68.32 Body mass index [BMI] 32.0-32.9, adult; E88.09 Other disorders of plasma-protein metabolism, not elsewhere classified; Z87.19 Personal history of other diseases of the digestive system
CPT/HCPCS: 36415; 71045-TC; 80048-TC; 80053-TC; 80076-TC; 82248-TC; 82550-TC; 82553; 82728-TC; 83605-TC; 83615-TC; 83880; 84484-TC; 85025-TC; 85378-TC; 85385-TC; 85610-TC; 85730-TC; 86140-TC; 86850-TC; 87040-TC; 87081-TC; A4216; G0378; J0456; J0692; J0696; J1100; J1650; J2405; J7030; J7040; J7050; J7060; Q0162; U0003

== ENCOUNTER 2023-01-10 13:02 | Emergency (ER) | payer OTHER ==
[~2023-01-10] VITALS: Ht 167.6 cm; Wt 84.4 kg
[~2023-01-10 13:02] MED LIST: ACET-1262 PO; ASCO500T23 PO; ASPI-1420 PO; ENAL1TAB10 PO; ERGO500093 PO; TAMS-12 PO
--- NOTE | 2023-01-10 13:56 | NUR ---
PT GOING TO CT
[2023-01-10] MEDS ORDERED: IV NS 0.9% 500 ML BAG IV ONE (14:00)
--- NOTE | 2023-01-10 14:33 | NUR ---
COVID SWAB TAKEN AND SENT TO LAB
[2023-01-10 14:48] LABS: BASOPHILS # (AUTO) 0.1 K/uL (0.0-0.2); BASOPHILS % (AUTO) 0.8 % (0.0-2.0); EOSINOPHILS % (AUTO) 3.6 % (0.0-6.0); HEMATOCRIT 36 % (39-51); LYMPHOCYTES # (AUTO) 2.2 K/uL (0.8-4.8); LYMPHOCYTES % (AUTO) 28.4 % (20.0-44.0); MEAN CORPUSCULAR HGB CONC 34 g/dl (31.0-36.0); MEAN CORPUSCULAR VOLUME 86 fL (80-96); MONOCYTES # (AUTO) 0.6 K/uL (0.1-1.30); MONOCYTES % (AUTO) 7.7 % (2.0-12.0); NEUTROPHILS # (AUTO) 4.7 K/uL (1.8-8.9); NEUTROPHILS % (AUTO) 59.5 % (43.0-81.0); PLATELET COUNT (AUTO) 142 K/uL (150-450); RED BLOOD CELL COUNT(AUTO) 4.11 MIL/uL (4.5-6.0); WHITE BLOOD COUNT (AUTO) 7.9 K/uL (4.3-11.0)
[2023-01-10 15:00] LABS: ALBUMIN 3.5 g/dL (3.4-5.0); BILIRUBIN,DIRECT 0.1 mg/dL (0.0-0.2); BILIRUBIN,TOTAL 0.4 mg/dL (0.2-1.0); CALCIUM, SERUM 8.8 mg/dL (8.5-10.1); POTASSIUM 3.6 mmol/L (3.5-5.1)
[2023-01-10 15:15] LABS: BILIRUBIN,URINE NEGATIVE (NEGATIVE); COLOR,URINE YELLOW (YELLOW); LEUKOCYTE ESTERASE ,URINE TRACE (NEGATIVE); NITRITE, URINE NEGATIVE (NEGATIVE); PH,URINE 5.5 (5.0-8.0); PROTEIN,URINE 2+ mg/dl (NEGATIVE); UGLUCOSE NEGATIVE (NEGATIVE); UROBILINOGEN,URINE 0.2 EU/dL (0.2)
--- NOTE | 2023-01-10 15:21 | NUR ---
URINE COLLECTED AND SENT TO LAB
[2023-01-10] MEDS ORDERED: CEFTRIAXONE 1GM BAG (ER ONLY) 50 ML IV ONE (15:41)
[2023-01-10 15:57] LABS: RBC,URINE 51-80 /HPF (0-2); SQUAMOUS EPITHELIAL CELL,UR 0-2 /HPF (None Seen)
[2023-01-10 15:58] LABS: BACTERIA,URINE 1+ /HPF (None Seen)
[2023-01-10] MEDS ORDERED: CEFTRIAXONE 1GM BAG (ER ONLY) 1 GM/50 ML PIGGYBACK IV ONE (16:00)
[2023-01-10] MEDS ORDERED: CIPR-262 PO (17:19)
--- NOTE | 2023-01-10 18:36 | NUR ---
CALLED [facility] [phone] CM LEFT VM FOR [facility] HOSPITALIST TO CALL BACK.
--- NOTE | 2023-01-10 18:49 | NUR ---
[facility] [phone] FAX [phone] [address]. MACHADO [phone] SHANKS.
--- NOTE | 2023-01-10 18:52 | NUR ---
[facility] FOR TRANSPORT # [id number] FOR TRANSPORT.
--- NOTE | 2023-01-10 21:21 | NUR ---
CLINICALS REFAXED TO [facility] PER REQUEST
--- NOTE | 2023-01-10 23:38 | NUR ---
PT ACCEPTED AT [facility]. PT IS GOING TO ROOM 2374. CALL [phone] FOR REPORT.
--- NOTE | 2023-01-10 23:42 | NUR ---
[facility] ETA 70-90 MIN.
--- NOTE | 2023-01-11 00:27 | NUR ---
REPORT GIVEN TO EMT VINICIO OF [facility] [address]. PATIENT WILL BE TRANSFERRED TO [facility] WITHIN NORMAL RANGE, WITH IV OSVALDO ON LEFT HAND G20. PATIENT IS AAOX4. ABLE TO MAKE NEEDS KNOWN.
--- NOTE | 2023-01-11 00:48 | NUR ---
TRIED GIVING REPORT AGAIN TO [facility] NUR[facility]. SHE IS STILL NOT AVAILABLE.
--- NOTE | 2023-01-11 01:05 | NUR ---
TRIED CALLING RN ASSIGNED TO PT IN [place] PRES. NOT PICKING UP.
[2023-01-11 01:06] VITALS: BP 131/87
== END 2023-01-11 01:06 ==
LOC: ER 13:09
DX: N30.91 Cystitis, unspecified with hematuria (principal); I10 Essential (primary) hypertension; E11.9 Type 2 diabetes mellitus without complications; Z79.899 Other long term (current) drug therapy; Z79.82 Long term (current) use of aspirin; Z20.822 Contact with and (suspected) exposure to COVID-19
CPT/HCPCS: 99285; 74176; 96365; 96361; 87426; 85025; 80048; 87040 ×2; 87086; 83605; 83690; 80076; 81001; 36415; J7040; J0696; C9803